=== PATIENT | male | born 1970 | race Caucasian/White ===

== ENCOUNTER 2016-11-15 00:30 | Emergency (ER) | payer OTHER ==
--- NOTE | 2016-11-15 02:28 | ED CLINICAL REPORT ---
Clinical Report - Physicians/Mid Levels [facility] [address] [place] [address] 11/15/2016 0:29 Patient: ILEANA FAYE Time Seen: 0030. Arrived- By ambulance. Historian- patient. HISTORY OF PRESENT ILLNESS Chief Complaint: RIGHT TESTICULAR PAIN. This started past several days and is still present and worsening. It was abrupt in onset and has been constant but is not gone now. No penile discharge or genital lesion. He has had testicular pain. Able to void. Sexual history is noncontributory. Similar symptoms previously: None. Recent medical care: Not recently seen/assessed. REVIEW OF SYSTEMS No fever or chills. All systems otherwise negative, except as recorded above. PAST HISTORY See nurses notes. SOCIAL HISTORY Smoker- current status unknown. Occasional alcohol use. No drug use. No recent travel. Is a local resident. FAMILY HISTORY (no family history of testicular cancer). ADDITIONAL NOTES The nursing notes have been reviewed. PHYSICAL EXAM Vital Signs: 11/15/2016 00:32 BP: 136/87. HR: 86. RR: 16. O2 saturation: 97%. Temp: 97.6 F. Pain level now: 6/10. Blood pressure normal. Oxygen saturation normal. Appearance: Alert. Oriented X3. No acute distress. ENT: Normal external inspection. Pharynx normal. CVS: Heart sounds normal. Respiratory: No respiratory distress. Breath sounds normal. Abdomen: Soft and nontender. Bowel sounds normal. No mass. : (no hernia noted on examination. Normal-appearing right and left testicles with enlarged right-sided spermatic cord no masses. No crepitus. No signs of foreign's gangrene. Circumcised. No rashes or lesions. No inguinal lymphadenopathy. No overlying skin changes. No penile discharge). Skin: Skin warm and dry. Normal skin color. No rash. Normal skin turgor. Extremities: Extremities exhibit normal ROM. No lower extremity edema. Neuro: Oriented X 3. No motor deficit. No sensory deficit. LABS, X-RAYS, AND EKG Scrotal Sonogram: Testes normal. Medium-sized right hydrocele. The exam was performed by a biochemistry technician. The study was independently viewed by me, interpreted by the radiologist and discussed with the radiologist. Laboratory Tests: UA-Culture if indicated: (RUPERT: 11/15/2016 02:00) ( MsgRcvd 11/15/2016 02:18) Final results Test Result Flag Units (Reference) URINE COLOR YELLOW URINE APPEARANCE CLEAR URINE GLUCOSE NEGATIVE (NEGATIVE) URINE BILIRUBIN NEGATIVE (NEGATIVE) URINE KETONE NEGATIVE (NEGATIVE) URINE SPECIFIC GRAVITY >= 1.030 (1.010-1.030) URINE PH 6.0 (5.0-8.0) URINE PROTEIN NEGATIVE (NEGATIVE) URINE UROBILINOGEN 1.0 EU/dL (0.2-1.0) URINE NITRITE NEGATIVE (NEGATIVE) URINE BLOOD NEGATIVE (NEGATIVE) URINE LEUK ESTERASE NEGATIVE (NEGATIVE) URINE RBC 0-1 rbc/hpf (0-1) URINE WBC 1-3 wbc/hpf (0-1) URINE EPITHELIAL CELLS 0-1 EPI/hpf (0-5) URINE BACTERIA NONE SEEN (NONE SEEN) URINE COMMENT CULT NOT INDICATED URINE CULTURES ARE SET-UP BASED ON THE FOLLOWING CRITERIA:POSITIVE NITRITEPOSITIVE LEUKOCYTE ESTERASEGREATER THAN 10 WHITE BLOOD CELLSMODERATE (2+) OR GREATER BACTERIA . PROGRESS AND PROCEDURES Course of Care: the patient is a pleasant 46-year-old male presenting for evaluation of right-sided testicular pain on examination, the patient does not have any signs of inguinal hernia. Differential diagnosis at this time includes torsion,varicocele, hydrocele as well as epididymitis. Patient is agreeable to the workup and plan. Urinalysis as well as ultrasound has been ordered. Ultrasound does not show any signs of testicular torsion. Patient has good bilateral flow to theThe patient does have a right-sided hydrocele which would explain the patient's discomfort and I'm normality found on examination. Urinalysis does not show any signs ofurinary tract infection. Did not feel that this is epididymitis. Had a discussion with the patient in regards to symptoms here in the emergency department included home care, follow-up, and return precautions. All questions have been answered. The patient expressed understanding of these instructions and was agreeable to them. Prior to patient's departure from the emergency room he is noted to be nontoxic and resting in bed and in no acute distress. Patient is a good outpatient candidate. Do not feel patient has a surgical emergency at this time. Do not feel further emergency department workup/evaluation is required at this time. Disposition: Discharged. Condition: good. CLINICAL IMPRESSION 11/15/2016 00:32 BP: 136/87. HR: 86. RR: 16. O2 saturation: 97%. Temp: 97.6 F. Pain level now: 6/10. Hypertensive. Oxygen saturation normal. Right acute hydrocele. No infected hydrocele. INSTRUCTIONS Warnings: GENERAL WARNINGS: Return or contact your physician immediately if your condition worsens or changes unexpectedly, if not improving as expected, or if other problems arise. Specifically return if pain, vomiting, bleeding, breathing difficulty or fever. Your Current Medications: CONTINUE TAKING THE FOLLOWING MEDICATIONS: None*. OTC Medications: Tylenol (available over the counter): take according to label instructions. Motrin (available over the counter): take according to label instructions. Follow-up: Return to the emergency department as needed. Follow up with your doctor in three days. Reason for referral: recheck today's concerns. Summary of care provided to patient via paper. Screening today revealed the patient's blood pressure to be in the normal range. The patient should follow up with a primary care provider for blood pressure management. Understanding of the discharge instructions verbalized by patient. Follow-up with: Idris Peacock MD, Urology, , [address] [facility] [place], [id number] Follow up in one week if not well. Reason for referral: recheck today's concerns. Summary of care provided to patient via paper. (Electronically signed by Gonzalo Kimble Dr. 11/17/2016 5:23)
--- NOTE | 2016-11-15 02:28 | ED CLINICAL REPORT ---
Clinical Report - Physicians/Mid Levels [facility] [address] [place] [address] 11/15/2016 0:29 Patient: ILEANA FAYE Time Seen: 0030. Arrived- By ambulance. Historian- patient. HISTORY OF PRESENT ILLNESS Chief Complaint: RIGHT TESTICULAR PAIN. This started past several days and is still present and worsening. It was abrupt in onset and has been constant but is not gone now. No penile discharge or genital lesion. He has had testicular pain. Able to void. Sexual history is noncontributory. Similar symptoms previously: None. Recent medical care: Not recently seen/assessed. REVIEW OF SYSTEMS No fever or chills. All systems otherwise negative, except as recorded above. PAST HISTORY See nurses notes. SOCIAL HISTORY Smoker- current status unknown. Occasional alcohol use. No drug use. No recent travel. Is a local resident. FAMILY HISTORY (no family history of testicular cancer). ADDITIONAL NOTES The nursing notes have been reviewed. PHYSICAL EXAM Vital Signs: 11/15/2016 00:32 BP: 136/87. HR: 86. RR: 16. O2 saturation: 97%. Temp: 97.6 F. Pain level now: 6/10. Blood pressure normal. Oxygen saturation normal. Appearance: Alert. Oriented X3. No acute distress. ENT: Normal external inspection. Pharynx normal. CVS: Heart sounds normal. Respiratory: No respiratory distress. Breath sounds normal. Abdomen: Soft and nontender. Bowel sounds normal. No mass. : (no hernia noted on examination. Normal-appearing right and left testicles with enlarged right-sided spermatic cord no masses. No crepitus. No signs of foreign's gangrene. Circumcised. No rashes or lesions. No inguinal lymphadenopathy. No overlying skin changes. No penile discharge). Skin: Skin warm and dry. Normal skin color. No rash. Normal skin turgor. Extremities: Extremities exhibit normal ROM. No lower extremity edema. Neuro: Oriented X 3. No motor deficit. No sensory deficit. LABS, X-RAYS, AND EKG Scrotal Sonogram: Testes normal. Medium-sized right hydrocele. The exam was performed by a senior pharmacy technician. The study was independently viewed by me, interpreted by the radiologist and discussed with the radiologist. Laboratory Tests: UA-Culture if indicated: (RUPERT: 11/15/2016 02:00) ( MsgRcvd 11/15/2016 02:18) Final results Test Result Flag Units (Reference) URINE COLOR YELLOW URINE APPEARANCE CLEAR URINE GLUCOSE NEGATIVE (NEGATIVE) URINE BILIRUBIN NEGATIVE (NEGATIVE) URINE KETONE NEGATIVE (NEGATIVE) URINE SPECIFIC GRAVITY >= 1.030 (1.010-1.030) URINE PH 6.0 (5.0-8.0) URINE PROTEIN NEGATIVE (NEGATIVE) URINE UROBILINOGEN 1.0 EU/dL (0.2-1.0) URINE NITRITE NEGATIVE (NEGATIVE) URINE BLOOD NEGATIVE (NEGATIVE) URINE LEUK ESTERASE NEGATIVE (NEGATIVE) URINE RBC 0-1 rbc/hpf (0-1) URINE WBC 1-3 wbc/hpf (0-1) URINE EPITHELIAL CELLS 0-1 EPI/hpf (0-5) URINE BACTERIA NONE SEEN (NONE SEEN) URINE COMMENT CULT NOT INDICATED URINE CULTURES ARE SET-UP BASED ON THE FOLLOWING CRITERIA:POSITIVE NITRITEPOSITIVE LEUKOCYTE ESTERASEGREATER THAN 10 WHITE BLOOD CELLSMODERATE (2+) OR GREATER BACTERIA . PROGRESS AND PROCEDURES Course of Care: the patient is a pleasant 46-year-old male presenting for evaluation of right-sided testicular pain on examination, the patient does not have any signs of inguinal hernia. Differential diagnosis at this time includes torsion,varicocele, hydrocele as well as epididymitis. Patient is agreeable to the workup and plan. Urinalysis as well as ultrasound has been ordered. Ultrasound does not show any signs of testicular torsion. Patient has good bilateral flow to theThe patient does have a right-sided hydrocele which would explain the patient's discomfort and I'm normality found on examination. Urinalysis does not show any signs ofurinary tract infection. Did not feel that this is epididymitis. Had a discussion with the patient in regards to symptoms here in the emergency department included home care, follow-up, and return precautions. All questions have been answered. The patient expressed understanding of these instructions and was agreeable to them. Prior to patient's departure from the emergency room he is noted to be nontoxic and resting in bed and in no acute distress. Patient is a good outpatient candidate. Do not feel patient has a surgical emergency at this time. Do not feel further emergency department workup/evaluation is required at this time. Disposition: Discharged. Condition: good. CLINICAL IMPRESSION 11/15/2016 00:32 BP: 136/87. HR: 86. RR: 16. O2 saturation: 97%. Temp: 97.6 F. Pain level now: 6/10. Hypertensive. Oxygen saturation normal. Right acute hydrocele. No infected hydrocele. INSTRUCTIONS Warnings: GENERAL WARNINGS: Return or contact your physician immediately if your condition worsens or changes unexpectedly, if not improving as expected, or if other problems arise. Specifically return if pain, vomiting, bleeding, breathing difficulty or fever. Your Current Medications: CONTINUE TAKING THE FOLLOWING MEDICATIONS: None*. OTC Medications: Tylenol (available over the counter): take according to label instructions. Motrin (available over the counter): take according to label instructions. Follow-up: Return to the emergency department as needed. Follow up with your doctor in three days. Reason for referral: recheck today's concerns. Summary of care provided to patient via paper. Screening today revealed the patient's blood pressure to be in the normal range. The patient should follow up with a primary care provider for blood pressure management. Understanding of the discharge instructions verbalized by patient. Follow-up with: Idris Peacock MD, Urology, , [address] [facility] [place], [address] Follow up in one week if not well. Reason for referral: recheck today's concerns. Summary of care provided to patient via paper. (Electronically signed by Gonzalo Kimble Dr. 11/17/2016 5:23)
--- NOTE | 2016-11-15 02:29 | ED NURSING NOTES ---
Clinical Report - Nurses [facility] [address] [place] [address] 11/15/2016 0:29 Patient: ILEANA FAYE TRIAGE Triage time 00:32. Acuity: LEVEL 3. Chief Complaint: TESTICULAR PAIN. PENNY COMA SCORE: [place] Coma Scale: 15- eyes open spontaneously (4); best verbal response- oriented x 4 (5); best motor response- obeys commands (6). --00:39 Hugo Chavez R.N. 00:32 11/15/16. BP: 136/87. HR: 86. RR: 16. O2 saturation: 97%. Temp: 97.6 F. Pain level now: 01/05. --00:39 Hugo Chavez R.N. Weight: 102 kg stated. Height/Length: 73 inches Per Patient. BMI: 29.7. --00:36 Hugo Chavez R.N. Medications None. --00:33 Hugo Chavez R.N. Allergies No Known Drug Allergy. --00:33 Hugo Chavez R.N. History Historian: patient. Arrived in police custody. ( right testicular pain and swelling started 3/7 ago). He has had moderate testicular pain (3 days), involving the right testicle. Treatment MANAGED CARE PROVIDER: None. SURGERY HX: No history of previous surgery. SOCIAL HX: Light tobacco smoker (cigarette)- less than 1/2 a pack per day. History of drug use: marijuana. --00:39 Hugo Chavez R.N. PROBLEMS: Abcess penis. --00:34 Hugo Chavez R.N. Hernia. --00:36 Hugo Chavez R.N. ADDITIONAL SURGERIES: no known surgeries. Interventions To treatment room. --00:39 Hugo Chavez R.N. PHYSICAL ASSESSMENT Ambulatory to room. GENERAL / NEURO / PSYCH: Alert. Oriented X 4. Appears in no acute distress. HEENT: Mucous membranes are pink. RESPIRATORY: Respirations not labored. CVS: Normal heart rate and rhythm. GI / : Abdomen soft and nontender. Right-sided scrotal swelling. Right testicular tenderness. SKIN: Skin is warm. --00:41 Hugo Chavez R.N. NURSING PROGRESS NOTES Two patient identifiers checked. Call light placed in reach. Side rails up x 1. Bed placed in lowest position. Patient ready for evaluation- chart flagged and ED physician notified. Patient waiting for evaluation. ( handcuffed to the stretcher on his right wrist by the police liaison). --00:40 Hugo Chavez R.N. 00:48 11/15/2016 Motrin PO Tablets 600 mg given. Allergies verified and confirmed 5 rights. --00:48 Hugo Chavez R.N. 01:39- US tech at bedside to perform US exam. --01:39 Reyna Alva R.N. Patient ID band checked for patient name and birthdate: patient confirmed urine collected with return of natalie-colored urine; sample sent to lab. Specimen labeled in the presence of the patient. --02:04 Reyna Alva R.N. DISPOSITION / DISCHARGE Departure time: 02:40. Condition at departure: improved. No learning barriers present. Discharge instructions provided and reviewed with the patient. Reviewed medication(s) side effects, precautions, dosing and course information. Prescription(s) given to the patient. Patient verbalized understanding. Written instructions provided in Spanish. The patient was discharged to police department facility and accompanied by a police escort. He left the Emergency Department ambulatory and via police department vehicle. Driving (police). --02:40 Hugo Chavez R.N. 02:30 11/15/16. BP: 128/84. HR: 68. RR: 14. O2 saturation: 97%. Temp: 97.9 F. Pain level now: 11/05. --02:40 Hugo Chavez R.N. Locked/Released at 11/15/2016 2:41 by Hugo Chavez R.N.
--- NOTE | 2016-11-15 02:29 | ED ORDER SUMMARY ---
..... Patient: ILEANA FAYE OrderSheet [facility] VisitID: [id number] [place] [address] 46y, M Registration Date/Time: 11/15/2016 ORDER SHEET Weight: 102.0 kg (stated) Allergies: No Known Drug Allergy GENERAL ORDERS: US Scrotum/Testicular Urgent (00:37 11/15/2016 Alessandra Holm) (Ack 0:39 Vobi ER Family Nurse) (1:54 Nimesh) UA-Culture if indicated Urgent (00:38 11/15/2016 Alessandra Holm) (Ack 0:39 Ashtyn ER Family Nurse) (2:04 Helen R.N.) MEDICATION ORDERS: Motrin PO 600 mg (NOW) (00:37 11/15/2016 Alessandra Holm) (Ack 0:42 Marilee R.N.) (0:48 Marilee R.N.) IV FLUIDS: ORDER SHEET NOTES: [Electronically signed by Hugo Chavez R.N. (02:41 11/15/2016)] [Electronically locked/signed by Hugo Chavez R.N. (02:41 11/15/2016)]
--- NOTE | 2016-11-15 02:29 | ED ORDER SUMMARY ---
..... Patient: ILEANA FAYE OrderSheet [facility] VisitID: [id number] [place] [address] 46y, M Registration Date/Time: 11/15/2016 ORDER SHEET Weight: 102.0 kg (stated) Allergies: No Known Drug Allergy GENERAL ORDERS: US Scrotum/Testicular Urgent (00:37 11/15/2016 Alessandra Holm) (Ack 0:39 [facility] Film Processing Utility Worker) (1:54 Nimesh) UA-Culture if indicated Urgent (00:38 11/15/2016 Alessandra Holm) (Ack 0:39 Ashtyn ER Film Processing Utility Worker) (2:04 Helen R.N.) MEDICATION ORDERS: Motrin PO 600 mg (NOW) (00:37 11/15/2016 Alessandra Holm) (Ack 0:42 Marilee R.N.) (0:48 Marilee R.N.) IV FLUIDS: ORDER SHEET NOTES: [Electronically signed by Hugo Chavez R.N. (02:41 11/15/2016)] [Electronically locked/signed by Hugo Chavez R.N. (02:41 11/15/2016)]
--- NOTE | 2016-11-15 02:29 | ED NURSING NOTES ---
Clinical Report - Nurses [facility] [address] [place] [address] 11/15/2016 0:29 Patient: ILEANA FAYE TRIAGE Triage time 00:32. Acuity: LEVEL 3. Chief Complaint: TESTICULAR PAIN. PENNY COMA SCORE: [place] Coma Scale: 15- eyes open spontaneously (4); best verbal response- oriented x 4 (5); best motor response- obeys commands (6). --00:39 Hugo Chavez R.N. 00:32 11/15/16. BP: 136/87. HR: 86. RR: 16. O2 saturation: 97%. Temp: 97.6 F. Pain level now: 01/05. --00:39 Hugo Chavez R.N. Weight: 102 kg stated. Height/Length: 73 inches Per Patient. BMI: 29.7. --00:36 Hugo Chavez R.N. Medications None. --00:33 Hugo Chavez R.N. Allergies No Known Drug Allergy. --00:33 Hugo Chavez R.N. History Historian: patient. Arrived in police custody. ( right testicular pain and swelling started 3/7 ago). He has had moderate testicular pain (3 days), involving the right testicle. Treatment WASTE RECYCLER: None. SURGERY HX: No history of previous surgery. SOCIAL HX: Light tobacco smoker (cigarette)- less than 1/2 a pack per day. History of drug use: marijuana. --00:39 Hugo Chavez R.N. PROBLEMS: Abcess penis. --00:34 Hugo Chavez R.N. Hernia. --00:36 Hugo Chavez R.N. ADDITIONAL SURGERIES: no known surgeries. Interventions To treatment room. --00:39 Hugo Chavez R.N. PHYSICAL ASSESSMENT Ambulatory to room. GENERAL / NEURO / PSYCH: Alert. Oriented X 4. Appears in no acute distress. HEENT: Mucous membranes are pink. RESPIRATORY: Respirations not labored. CVS: Normal heart rate and rhythm. GI / : Abdomen soft and nontender. Right-sided scrotal swelling. Right testicular tenderness. SKIN: Skin is warm. --00:41 Hugo Chavez R.N. NURSING PROGRESS NOTES Two patient identifiers checked. Call light placed in reach. Side rails up x 1. Bed placed in lowest position. Patient ready for evaluation- chart flagged and ED physician notified. Patient waiting for evaluation. ( handcuffed to the stretcher on his right wrist by the police artist). --00:40 Hugo Chavez R.N. 00:48 11/15/2016 Motrin PO Tablets 600 mg given. Allergies verified and confirmed 5 rights. --00:48 Hugo Chavez R.N. 01:39- US tech at bedside to perform US exam. --01:39 Reyna Alva R.N. Patient ID band checked for patient name and birthdate: patient confirmed urine collected with return of natalie-colored urine; sample sent to lab. Specimen labeled in the presence of the patient. --02:04 Reyna Alva R.N. DISPOSITION / DISCHARGE Departure time: 02:40. Condition at departure: improved. No learning barriers present. Discharge instructions provided and reviewed with the patient. Reviewed medication(s) side effects, precautions, dosing and course information. Prescription(s) given to the patient. Patient verbalized understanding. Written instructions provided in [place]. The patient was discharged to police department facility and accompanied by a police escort. He left the Emergency Department ambulatory and via police department vehicle. Driving (police). --02:40 Hugo Chavez R.N. 02:30 11/15/16. BP: 128/84. HR: 68. RR: 14. O2 saturation: 97%. Temp: 97.9 F. Pain level now: 11/05. --02:40 Hugo Chavez R.N. Locked/Released at 11/15/2016 2:41 by Hugo Chavez R.N.
--- NOTE | 2016-11-15 07:02 | DIAGNOSTIC IMAGING REPORT ---
PROCEDURE: US SCROTUM/TESTICLE INDICATION: SCROTAL SWELLING TECHNIQUE: [place]a scale and color Doppler sonographic images through the scrotum were obtained. COMPARISON: None. FINDINGS: RIGHT TESTICLE: Measures 6 x 3.8 x 3.7 cm with normal echo structure and vascularity. Epididymis not well visualized. Large right hydrocele. LEFT TESTICLE: Measures 6 x 4.2 x 3.3 cm with normal echo structure and vascularity. Epididymis not well visualized. IMPRESSION: 1. Large right hydrocele 2. Normal testicles
--- NOTE | 2016-11-17 05:23 | ED DISCHARGE INSTRUCTIONS ---
Patient: ILEANA FAYE General Instructions [facility] VisitID: [id number] [place] [address] 46y, M Registration Date/Time: 11/15/2016 11/15/2016 00:32 BP: 136/87. HR: 86. RR: 16. O2 saturation: 97%. Temp: 97.6 F. Pain level now: 610. Hypertensive. Oxygen saturation normal. Right acute hydrocele. No infected hydrocele. INSTRUCTIONS Warnings: GENERAL WARNINGS: Return or contact your physician immediately if your condition worsens or changes unexpectedly, if not improving as expected, or if other problems arise. Specifically return if pain, vomiting, bleeding, breathing difficulty or fever. Your Current Medications: CONTINUE TAKING THE FOLLOWING MEDICATIONS: None*. OTC Medications: Tylenol (available over the counter): take according to label instructions. Motrin (available over the counter): take according to label instructions. Follow-up: Return to the emergency department as needed. Follow up with your doctor in three days. Reason for referral: recheck today's concerns. Summary of care provided to patient via paper. Screening today revealed the patient's blood pressure to be in the normal range. The patient should follow up with a primary care provider for blood pressure management. Understanding of the discharge instructions verbalized by patient. Follow-up with: Idris Peacock MD, Urology, , [address] [facility], [id number] Follow up in one week if not well. Reason for referral: recheck today's concerns. Summary of care provided to patient via paper. ADDITIONAL INFORMATION Hydrocele [Type Not Specified] Inside the womb, the testicles first form in the abdomen of the male fetus. Just before , the testicles move down into the scrotum. As this happens, fluid from the abdomen may pass into the scrotum and become sealed off there in a small sac. This is called a non-communicating hydrocele . In some infants the passage between the abdomen and the scrotum remains open. In this case, the bulge may increase and decrease in size as the fluid passes back and forth from the abdomen to the scrotum. This is called a communicating hydrocele . The danger of this second kind of hydrocele is that it can lead to a hernia . A hernia looks like a painless bulge in the groin or scrotum. An hernia can cause gangrene and rupture of the intestine. This is a life-threatening emergency and requires immediate surgery. So, it must be watched for. Most hydroceles shrink and disappear by the age of one or two years and require no treatment. If the hydrocele does not go away by 2 years of age, it may need to be corrected with surgery. Home Care: A small hydrocele will not interfere in any way with normal activity. There are no special precautions that need to be taken. Follow Up with your doctor or as advised by our staff. with your doctor for routine exams to be sure the hydrocele is shrinking and that no hernia appears. Get Prompt Medical Attention if any of the following occur: -- A new bulge in the groin that appears just above the thigh crease or in the scrotum -- Changes in size of the hydrocele (getting smaller then larger then smaller; or gets larger and stays larger) -- Pain, redness or tenderness in the hydrocele You have been given the following additional information: Hydrocele, Type Not Specified (Electronically signed by Gonzalo Kimble Dr. 11/17/2016 5:23)
--- NOTE | 2016-11-17 05:23 | ED MAR SUMMARY ---
..... Medication Administration Record [facility] [address] [place] [address] Patient: ILEANA FAYE Visit ID: [id number] 46y, M Weight: 102.0 kg Height/Length: 73 in BMI: 29.7 ALLERGIES: No Known Drug Allergy Given 00:48 11/15/2016 Hugo Chavez R.N. Medication Administered: MOTRIN [PO], Dose: 600 mg Tablets PO. Medication Ordered: Motrin PO 600 mg (NOW).
--- NOTE | 2016-11-17 05:23 | ED MED RECONCILIATION SUMMARY ---
Patient: ILEANA FAYE Medication Reconciliation Report [facility] VisitID: [id number] [address] [place] [address] 46y, M Registration Date/Time: 11/15/2016 Weight: 102.0 kg Height/Length: 73 in. BMI: 29.7 ALLERGIES: No Known Drug Allergy The patient's Home Medications are listed below: NONE. The source(s) of the original Home Medication information: Not obtained. The following Medications were given to the patient in the Emergency Department: Motrin [PO] PO 600 mg, administered: 11/15/2016 12:48:00 AM The following Medications were prescribed to the patient: Tylenol (available over the counter): take according to label instructions. -- Gonzalo Kimble Dr. Motshantal (available over the counter): take according to label instructions. -- Gonzalo Kimble Dr.
--- NOTE | 2016-11-17 05:23 | ED MAR SUMMARY ---
..... Medication Administration Record [facility] [address] [place] [address] Patient: ILEANA FAYE Visit ID: [id number] 46y, M Weight: 102.0 kg Height/Length: 73 in BMI: 29.7 ALLERGIES: No Known Drug Allergy Given 00:48 11/15/2016 Hugo Chavez R.N. Medication Administered: MOTRIN [PO], Dose: 600 mg Tablets PO. Medication Ordered: Motrin PO 600 mg (NOW).
--- NOTE | 2016-11-17 05:23 | ED DISCHARGE INSTRUCTIONS ---
Patient: ILEANA FAYE General Instructions [facility] VisitID: [id number] [place] [address] 46y, M Registration Date/Time: 11/15/2016 11/15/2016 00:32 BP: 136/87. HR: 86. RR: 16. O2 saturation: 97%. Temp: 97.6 F. Pain level now: 610. Hypertensive. Oxygen saturation normal. Right acute hydrocele. No infected hydrocele. INSTRUCTIONS Warnings: GENERAL WARNINGS: Return or contact your physician immediately if your condition worsens or changes unexpectedly, if not improving as expected, or if other problems arise. Specifically return if pain, vomiting, bleeding, breathing difficulty or fever. Your Current Medications: CONTINUE TAKING THE FOLLOWING MEDICATIONS: None*. OTC Medications: Tylenol (available over the counter): take according to label instructions. Motrin (available over the counter): take according to label instructions. Follow-up: Return to the emergency department as needed. Follow up with your doctor in three days. Reason for referral: recheck today's concerns. Summary of care provided to patient via paper. Screening today revealed the patient's blood pressure to be in the normal range. The patient should follow up with a primary care provider for blood pressure management. Understanding of the discharge instructions verbalized by patient. Follow-up with: Idris Peacock MD, Urology, , [address] [place], [address] Follow up in one week if not well. Reason for referral: recheck today's concerns. Summary of care provided to patient via paper. ADDITIONAL INFORMATION Hydrocele [Type Not Specified] Inside the womb, the testicles first form in the abdomen of the male fetus. Just before , the testicles move down into the scrotum. As this happens, fluid from the abdomen may pass into the scrotum and become sealed off there in a small sac. This is called a non-communicating hydrocele . In some infants the passage between the abdomen and the scrotum remains open. In this case, the bulge may increase and decrease in size as the fluid passes back and forth from the abdomen to the scrotum. This is called a communicating hydrocele . The danger of this second kind of hydrocele is that it can lead to a hernia . A hernia looks like a painless bulge in the groin or scrotum. An hernia can cause gangrene and rupture of the intestine. This is a life-threatening emergency and requires immediate surgery. So, it must be watched for. Most hydroceles shrink and disappear by the age of one or two years and require no treatment. If the hydrocele does not go away by 2 years of age, it may need to be corrected with surgery. Home Care: A small hydrocele will not interfere in any way with normal activity. There are no special precautions that need to be taken. Follow Up with your doctor or as advised by our staff. with your doctor for routine exams to be sure the hydrocele is shrinking and that no hernia appears. Get Prompt Medical Attention if any of the following occur: -- A new bulge in the groin that appears just above the thigh crease or in the scrotum -- Changes in size of the hydrocele (getting smaller then larger then smaller; or gets larger and stays larger) -- Pain, redness or tenderness in the hydrocele You have been given the following additional information: Hydrocele, Type Not Specified (Electronically signed by Gonzalo Kimble Dr. 11/17/2016 5:23)
--- NOTE | 2016-11-17 05:23 | ED MED RECONCILIATION SUMMARY ---
Patient: ILEANA FAYE Medication Reconciliation Report [facility] VisitID: [id number] [address] [place] [address] 46y, M Registration Date/Time: 11/15/2016 Weight: 102.0 kg Height/Length: 73 in. BMI: 29.7 ALLERGIES: No Known Drug Allergy The patient's Home Medications are listed below: NONE. The source(s) of the original Home Medication information: Not obtained. The following Medications were given to the patient in the Emergency Department: Motrin [PO] PO 600 mg, administered: 11/15/2016 12:48:00 AM The following Medications were prescribed to the patient: Tylenol (available over the counter): take according to label instructions. -- Gonzalo Kimble Dr. Motshantal (available over the counter): take according to label instructions. -- Gonzalo Kimble Dr.
== END 2016-11-15 02:41 ==
LOC: ED SRH 00:30
DX: N43.3 Hydrocele, unspecified (principal); F17.210 Nicotine dependence, cigarettes, uncomplicated
CPT/HCPCS: 90004

== ENCOUNTER 2016-11-21 12:40 | Emergency (ER) | payer OTHER ==
--- NOTE | 2016-11-21 13:43 | DIAGNOSTIC IMAGING REPORT ---
PROCEDURE: XR SHOULDER 2 OR MORE VW-RIGHT INDICATION: TRAUMA/INJURY TECHNIQUE: Three views. COMPARISON: None. FINDINGS: Osseous structures and joint spaces are normal. IMPRESSION: 1. Normal right shoulder.
--- NOTE | 2016-11-21 13:49 | ED ORDER SUMMARY ---
..... Patient: ILEANA FAYE OrderSheet [facility] VisitID: [id number] [address] [place] [address] 46y, M Registration Date/Time: 11/21/2016 ORDER SHEET Weight: 99.7 kg (stated) Allergies: No Known Drug Allergy GENERAL ORDERS: Shoulder 2V or more Right Urgent (12:51 11/21/2016 Riley R.N. per protocol) (Ack 12:53 LNations ER Tech1) (13:05 JBoardley R.N.) - (please give pt ice pack) (13:50 11/21/2016 LYNNETTEivenbassam A.R.N.P.) (13:52 LNations ER Tech1) MEDICATION ORDERS: IV FLUIDS: ORDER SHEET NOTES: [Electronically signed by Keena BenzRSonaliN.PSonali (17:32 11/21/2016)] [Electronically signed by Roger Weiss R.N. (09:05 11/26/2016)] [Electronically locked/signed by Roger Weiss R.N. (09:05 11/26/2016)]
--- NOTE | 2016-11-21 13:49 | ED NURSING NOTES ---
Clinical Report - Nurses [facility] [address] [place] [address] 11/21/2016 12:42 Patient: ILEANA FAYE TRIAGE Triage time 12:45. Acuity: LEVEL 3. Chief Complaint: FALL. 12:47 11/21/16. 12:47 11/21/16. Alert. No acute distress. (in pain). ( Pt fell onto right shoulder while handcuffed striking the frame of a door. Pt is an inmate. This occurred at 1135.). SEPSIS SCREEN: Sepsis Screen. Negative (no infection suspected/documented). JAKE COMA SCORE: Jake Coma Scale: 15- eyes open spontaneously (4); best verbal response- oriented x 4 (5); best motor response- obeys commands (6). --12:50 Roger Weiss R.N. 12:45 11/21/16. BP: 127/70. HR: 70. RR: 14. O2 saturation: 100% on room air. Temp: 98.1 F (oral). Pain level now: 03/07. --12:50 Roger Weiss R.N. ( Pt stuck right ear when he fell against the door frame). --12:52 Roger Weiss R.N. Weight: 99.7 kg stated. Height/Length: 73 inches Per Patient. BMI: 29. --12:47 Roger Weiss R.N. Medications None. --12:49 Roger Weiss R.N. Allergies No Known Drug Allergy. --12:49 Roger Weiss R.N. History Arrived by private vehicle. Historian: patient. Accompanied by (police). Primary physician (NONE). 12:47 11/21/16. This occurred today. He has had neck pain. No loss of consciousness. No headache. Treatment AUTOMOTIVE TIRE TESTER: None. (sling applied by EMT, by [employer]). Trauma activation: Pre-hospital notification of patient arrival was not received. PAST MEDICAL HX: Tetanus status: up-to-date. Immunizations: up-to-date. SOCIAL HX: Current some days smoker. Alcohol use. Patient is a recovering alcoholic. (last drink was 8 years ago). No drug use. No infectious disease exposure. ABUSE ASSESSMENT: No report of abuse. FALL RISK ASSESSMENT: Fall risk assessment completed. No fall risk identified. NUTRITIONAL RISK ASSESSMENT: The nutritional risk assessment revealed no deficiencies. FUNCTIONAL ASSESSMENT: Functional assessment: no impairments noted. LEARNING NEEDS ASSESSMENT: The learning needs assessment revealed no barriers. SKIN INTEGRITY ASSESSMENT: Skin integrity risk assessment completed. No skin integrity risk identified. --12:50 Roger Weiss R.N. PROBLEMS: Hydrocele. Hernia. Abcess penis. --12:49 Roger Weiss R.N. ADDITIONAL SURGERIES: no known surgeries. Assessment 12:47 11/21/16. --12:50 Roger Weiss R.N. Interventions 12:47 11/21/16. 12:47 11/21/16. ID and allergy band on patient. To treatment room. --12:50 Roger Weiss R.N. PHYSICAL ASSESSMENT 12:49 11/21/16. Ambulatory to room. GENERAL / NEURO / PSYCH: Alert. Oriented X 4. Appears in no acute distress. HEENT: Neck: tenderness. RESPIRATORY: Respirations not labored. CVS: Capillary refill less than 2 seconds. EXTREMITIES: Right shoulder: tenderness. SKIN: Skin is warm and dry. --12:49 Roger Weiss R.N. NURSING PROGRESS NOTES 12:50 11/21/16. The plan of care for this patient has been created. Reassurance given. Call light placed in reach. Side rails up x 2. --12:50 Roger Weiss R.N. 12:50 11/21/16. Patient ready for evaluation- chart flagged and notification provided. --12:50 Roger Weiss R.N. DISPOSITION / DISCHARGE 14:02 11/21/16. Condition at departure: improved. The goals identified in the patient's plan of care were met. ( Pt DC'd with police). No learning barriers present. Discharge instructions provided and reviewed with the patient. Reviewed warnings. Reviewed medication(s). Treatments reviewed. Patient verbalized understanding. Written instructions provided in Armenian. The patient was discharged by the nurse practitioner. He was discharged home and accompanied by a police escort. He left the Emergency Department ambulatory and via private vehicle. Driving (police). FALL RISK ASSESSMENT: Fall risk assessment completed. No fall risk identified. --14:02 Roger Weiss R.N. 14:11/21/16. BP: 124/72. HR: 81. RR: 16. O2 saturation: 100% on room air. Temp: 97.9 F (oral). Pain level now: 10/05. --14:02 Roger Weiss R.N. 14:02 11/21/16. Departure time: 14:02. --14:02 Roger Weiss R.N. 14:02 11/21/16. ( Ice pack given). --14:02 Roger Weiss R.N. Locked/Released at 11/26/2016 9:05 by Roger Weiss R.N.
--- NOTE | 2016-11-21 13:49 | ED ORDER SUMMARY ---
..... Patient: ILEANA FAYE OrderSheet [facility] VisitID: [id number] [address] [place] [address] 46y, M Registration Date/Time: 11/21/2016 ORDER SHEET Weight: 99.7 kg (stated) Allergies: No Known Drug Allergy GENERAL ORDERS: Shoulder 2V or more Right Urgent (12:51 11/21/2016 Riley R.N. per protocol) (Ack 12:53 LNations ER Tech1) (13:05 JBoardley R.N.) - (please give pt ice pack) (13:50 11/21/2016 LYNNETTEivenbassam A.R.N.P.) (13:52 LNations ER Tech1) MEDICATION ORDERS: IV FLUIDS: ORDER SHEET NOTES: [Electronically signed by eKena BenzRSonaliN.PSonali (17:32 11/21/2016)] [Electronically signed by Roger Weiss R.N. (09:05 11/26/2016)] [Electronically locked/signed by Roger Weiss R.N. (09:05 11/26/2016)]
--- NOTE | 2016-11-21 13:49 | ED CLINICAL REPORT ---
Clinical Report - Physicians/Mid Levels [facility] [address] [place] [address] 11/21/2016 12:42 Patient: ILEANA FAYE Time Seen: 1310; initial patient contact, initial documentation, patient care assumed. Arrived- Police present. Historian- patient and police. HISTORY OF PRESENT ILLNESS Location of injuries- neck and right shoulder (R ear). Chief Complaint: near fall. The injury occurred just prior to arrival. (half-way). ( was in handcuffs, walking thru half-way, tripped and fell full body weight into metal door frame, striking R collar bone, couldn't brace himself because of the hand cuffs). The patient complains of moderate pain. No blow to the head, loss of consciousness or seizure. The patient complains of neck pain. Not dazed. REVIEW OF SYSTEMS No numbness, chest pain, difficulty breathing, weakness or abdominal pain. No laceration. He has no pain on weight bearing. All systems otherwise negative, except as recorded above. PAST HISTORY See nurses notes. PROBLEMS: Hydrocele. Hernia. Abcess penis. --12:49 Roger Weiss RZainab. ADDITIONAL SURGERIES: no known surgeries. SOCIAL HISTORY Light tobacco smoker. Alcohol use. Patient is a recovering alcoholic. No drug use. No recent travel. Is a local resident. Resides in half-way. FAMILY HISTORY No significant family medical history. ADDITIONAL NOTES The nursing notes have been reviewed with agreement regarding the chief complaint, HPI, ROS, PMH and patient medications and allergies. PHYSICAL EXAM Vital Signs: 11/21/2016 12:45 BP: 127/70. HR: 70. RR: 14. O2 saturation: 100%. Temp: 98.1 F. Pain level now: 8/10. Have been reviewed as normal and appear to be correct. Appearance: Alert. Oriented X3. No acute distress. Head: Head non-tender. No swelling of head. Eyes: Pupils equal, round and reactive to light. EOM intact. ENT: No dental injury. Pharynx normal. Neck: Painless ROM. Non-tender. CVS: Heart sounds normal. Pulses normal. Respiratory: Breath sounds normal. Chest nontender. Abdomen: No visible injury. Soft and nontender. Back: No tenderness. ROM normal. Skin: Skin intact. Skin warm and dry. Normal skin color. Normal skin turgor. Extremities: Abnormal inspection. Extremities not atraumatic. Right clavicle area: moderate tenderness and small ecchymosis located in the area of the mid-clavicle. Limited ROM in the right arm secondary to pain (diminished abduction, adduction, flexion, extension and external and internal rotation). Neurovascular intact distally. No erythema, swelling, laceration, abrasion or puncture wound. No foreign body or deformity. Pelvis stable. No lower extremity edema. Neuro: Oriented X 3. No motor deficit. No sensory deficit. LABS, X-RAYS, AND EKG X-Rays: Right shoulder negative. Rt Shoulder X-ray: (IMPRESSION: 1. Normal right shoulder. Electronically Final signed by:Jalen Bhardwaj MD 11/21/2016 1:43:54 PM). The X-rays were interpreted by the radiologist and contemporaneously by me. PROGRESS AND PROCEDURES Course of Care: police guard here with pt. Patient counseled in person regarding the patient's stable condition, test results and diagnosis. 13:46. Differential Diagnosis: Other possible considerations: fall, fx, dislocation, contusion, lac, abrasion, sprains. Above considerations are based on history, physical exam, reassessment and X-Ray data. Differential diagnosis was discussed with patient. Disposition: Discharged home in good and improved condition (13:49). Condition: good and stable. CLINICAL IMPRESSION Single contusion to the right shoulder.No hematoma or skin abrasion. Fall on same level by tripping. INSTRUCTIONS Apply ice for 20 minutes four times a day for two days until better. Don't apply ice directly to skin. (patient is medically cleared to go with police back to half-way). Follow-up: Follow up with your doctor in about one week as needed. Call for an appointment. Summary of care provided to patient. Understanding of the discharge instructions verbalized by patient. (Electronically signed by Keena Benz A.R.NTeddy 11/21/2016 17:32)
--- NOTE | 2016-11-21 13:49 | ED CLINICAL REPORT ---
Clinical Report - Physicians/Mid Levels [facility] [address] [place] [address] 11/21/2016 12:42 Patient: ILEANA FAYE Time Seen: 1310; initial patient contact, initial documentation, patient care assumed. Arrived- Police present. Historian- patient and police. HISTORY OF PRESENT ILLNESS Location of injuries- neck and right shoulder (R ear). Chief Complaint: near fall. The injury occurred just prior to arrival. (senior care). ( was in handcuffs, walking thru senior care, tripped and fell full body weight into metal door frame, striking R collar bone, couldn't brace himself because of the hand cuffs). The patient complains of moderate pain. No blow to the head, loss of consciousness or seizure. The patient complains of neck pain. Not dazed. REVIEW OF SYSTEMS No numbness, chest pain, difficulty breathing, weakness or abdominal pain. No laceration. He has no pain on weight bearing. All systems otherwise negative, except as recorded above. PAST HISTORY See nurses notes. PROBLEMS: Hydrocele. Hernia. Abcess penis. --12:49 Roger Weiss RZainab. ADDITIONAL SURGERIES: no known surgeries. SOCIAL HISTORY Light tobacco smoker. Alcohol use. Patient is a recovering alcoholic. No drug use. No recent travel. Is a local resident. Resides in senior care. FAMILY HISTORY No significant family medical history. ADDITIONAL NOTES The nursing notes have been reviewed with agreement regarding the chief complaint, HPI, ROS, PMH and patient medications and allergies. PHYSICAL EXAM Vital Signs: 11/21/2016 12:45 BP: 127/70. HR: 70. RR: 14. O2 saturation: 100%. Temp: 98.1 F. Pain level now: 8/10. Have been reviewed as normal and appear to be correct. Appearance: Alert. Oriented X3. No acute distress. Head: Head non-tender. No swelling of head. Eyes: Pupils equal, round and reactive to light. EOM intact. ENT: No dental injury. Pharynx normal. Neck: Painless ROM. Non-tender. CVS: Heart sounds normal. Pulses normal. Respiratory: Breath sounds normal. Chest nontender. Abdomen: No visible injury. Soft and nontender. Back: No tenderness. ROM normal. Skin: Skin intact. Skin warm and dry. Normal skin color. Normal skin turgor. Extremities: Abnormal inspection. Extremities not atraumatic. Right clavicle area: moderate tenderness and small ecchymosis located in the area of the mid-clavicle. Limited ROM in the right arm secondary to pain (diminished abduction, adduction, flexion, extension and external and internal rotation). Neurovascular intact distally. No erythema, swelling, laceration, abrasion or puncture wound. No foreign body or deformity. Pelvis stable. No lower extremity edema. Neuro: Oriented X 3. No motor deficit. No sensory deficit. LABS, X-RAYS, AND EKG X-Rays: Right shoulder negative. Rt Shoulder X-ray: (IMPRESSION: 1. Normal right shoulder. Electronically Final signed by:Jalen Bhardwaj MD 11/21/2016 1:43:54 PM). The X-rays were interpreted by the radiologist and contemporaneously by me. PROGRESS AND PROCEDURES Course of Care: chief of police here with pt. Patient counseled in person regarding the patient's stable condition, test results and diagnosis. 13:46. Differential Diagnosis: Other possible considerations: fall, fx, dislocation, contusion, lac, abrasion, sprains. Above considerations are based on history, physical exam, reassessment and X-Ray data. Differential diagnosis was discussed with patient. Disposition: Discharged home in good and improved condition (13:49). Condition: good and stable. CLINICAL IMPRESSION Single contusion to the right shoulder.No hematoma or skin abrasion. Fall on same level by tripping. INSTRUCTIONS Apply ice for 20 minutes four times a day for two days until better. Don't apply ice directly to skin. (patient is medically cleared to go with police back to senior care). Follow-up: Follow up with your doctor in about one week as needed. Call for an appointment. Summary of care provided to patient. Understanding of the discharge instructions verbalized by patient. (Electronically signed by Keena Benz A.R.NTeddy 11/21/2016 17:32)
--- NOTE | 2016-11-21 13:49 | ED NURSING NOTES ---
Clinical Report - Nurses [facility] [address] [place] [address] 11/21/2016 12:42 Patient: ILEANA FAYE TRIAGE Triage time 12:45. Acuity: LEVEL 3. Chief Complaint: FALL. 12:47 11/21/16. 12:47 11/21/16. Alert. No acute distress. (in pain). ( Pt fell onto right shoulder while handcuffed striking the frame of a door. Pt is an inmate. This occurred at 1135.). SEPSIS SCREEN: Sepsis Screen. Negative (no infection suspected/documented). JAKE COMA SCORE: Jake Coma Scale: 15- eyes open spontaneously (4); best verbal response- oriented x 4 (5); best motor response- obeys commands (6). --12:50 Roger Weiss R.N. 12:45 11/21/16. BP: 127/70. HR: 70. RR: 14. O2 saturation: 100% on room air. Temp: 98.1 F (oral). Pain level now: 03/07. --12:50 Roger Weiss R.N. ( Pt stuck right ear when he fell against the door frame). --12:52 Roger Weiss R.N. Weight: 99.7 kg stated. Height/Length: 73 inches Per Patient. BMI: 29. --12:47 Roger Weiss R.N. Medications None. --12:49 Roger Weiss R.N. Allergies No Known Drug Allergy. --12:49 Roger Weiss R.N. History Arrived by private vehicle. Historian: patient. Accompanied by (police). Primary physician (NONE). 12:47 11/21/16. This occurred today. He has had neck pain. No loss of consciousness. No headache. Treatment DIRECTOR ONLINE MARKETING: None. (sling applied by EMT, by [employer]). Trauma activation: Pre-hospital notification of patient arrival was not received. PAST MEDICAL HX: Tetanus status: up-to-date. Immunizations: up-to-date. SOCIAL HX: Current some days smoker. Alcohol use. Patient is a recovering alcoholic. (last drink was 8 years ago). No drug use. No infectious disease exposure. ABUSE ASSESSMENT: No report of abuse. FALL RISK ASSESSMENT: Fall risk assessment completed. No fall risk identified. NUTRITIONAL RISK ASSESSMENT: The nutritional risk assessment revealed no deficiencies. FUNCTIONAL ASSESSMENT: Functional assessment: no impairments noted. LEARNING NEEDS ASSESSMENT: The learning needs assessment revealed no barriers. SKIN INTEGRITY ASSESSMENT: Skin integrity risk assessment completed. No skin integrity risk identified. --12:50 Roger Weiss R.N. PROBLEMS: Hydrocele. Hernia. Abcess penis. --12:49 Roger Weiss R.N. ADDITIONAL SURGERIES: no known surgeries. Assessment 12:47 11/21/16. --12:50 Roger Weiss R.N. Interventions 12:47 11/21/16. 12:47 11/21/16. ID and allergy band on patient. To treatment room. --12:50 Roger Weiss R.N. PHYSICAL ASSESSMENT 12:49 11/21/16. Ambulatory to room. GENERAL / NEURO / PSYCH: Alert. Oriented X 4. Appears in no acute distress. HEENT: Neck: tenderness. RESPIRATORY: Respirations not labored. CVS: Capillary refill less than 2 seconds. EXTREMITIES: Right shoulder: tenderness. SKIN: Skin is warm and dry. --12:49 Roger Weiss R.N. NURSING PROGRESS NOTES 12:50 11/21/16. The plan of care for this patient has been created. Reassurance given. Call light placed in reach. Side rails up x 2. --12:50 Roger Weiss R.N. 12:50 11/21/16. Patient ready for evaluation- chart flagged and notification provided. --12:50 Roger Weiss R.N. DISPOSITION / DISCHARGE 14:02 11/21/16. Condition at departure: improved. The goals identified in the patient's plan of care were met. ( Pt DC'd with police). No learning barriers present. Discharge instructions provided and reviewed with the patient. Reviewed warnings. Reviewed medication(s). Treatments reviewed. Patient verbalized understanding. Written instructions provided in [place]. The patient was discharged by the nurse practitioner. He was discharged home and accompanied by a police escort. He left the Emergency Department ambulatory and via private vehicle. Driving (police). FALL RISK ASSESSMENT: Fall risk assessment completed. No fall risk identified. --14:02 Roger Weiss R.N. 14:11/21/16. BP: 124/72. HR: 81. RR: 16. O2 saturation: 100% on room air. Temp: 97.9 F (oral). Pain level now: 10/05. --14:02 Roger Weiss R.N. 14:02 11/21/16. Departure time: 14:02. --14:02 Roger Weiss R.N. 14:02 11/21/16. ( Ice pack given). --14:02 Roger Weiss R.N. Locked/Released at 11/26/2016 9:05 by Roger Weiss R.N.
--- NOTE | 2016-11-26 15:10 | ED DISCHARGE INSTRUCTIONS ---
Patient: ILEANA FAYE General Instructions [facility] VisitID: [id number] [place] [address] 46y, M Registration Date/Time: 11/21/2016 Single contusion to the right shoulder.No hematoma or skin abrasion. Fall on same level by tripping. INSTRUCTIONS Apply ice for 20 minutes four times a day for two days until better. Don't apply ice directly to skin. (patient is medically cleared to go with police back to care home). Follow-up: Follow up with your doctor in about one week as needed. Call for an appointment. Summary of care provided to patient. Understanding of the discharge instructions verbalized by patient. ADDITIONAL INFORMATION Mechanical Fall You have had a fall today. It appears that the cause is mechanical. That means that you slipped, tripped or lost your balance. If your fall had been due to fainting or a seizure, further tests would be required. Home Care: Rest today and resume your normal activities when you are feeling back to normal. If you were injured during the fall, follow the advice from your doctor regarding care of your injury. You may use acetaminophen (Tylenol) or ibuprofen (Motrin, Advil) to control pain, unless another pain medicine was prescribed. [NOTE: If you have chronic liver or kidney disease or ever had a stomach ulcer or GI bleeding, talk with your doctor before using these medicines.] Fall Prevention: Was there anything that caused your fall that can be fixed, removed, or replaced? Make your home safe by keeping walkways clear of objects you may trip over. Use non-slip pads under rugs. Do not walk in poorly lit areas. Do not stand on chairs or wobbly ladders. Use caution when reaching overhead or looking upward. This position can cause a loss of balance. Be sure your shoes fit properly, have non-slip bottoms and are in good condition. Be cautious when going up and down curbs, and walking on uneven sidewalks. If your balance is poor, consider using a cane or walker. Stay as active as you can. Balance, flexibility, strength, and endurance all come from exercise. They all play a role in preventing falls. Follow Up with your doctor or as advised by our staff. Get Prompt Medical Attention if any of the following occur: Repeated mechanical falls, or unexplained falls Dizziness, fainting or seizure Severe headache Chest pain or shortness of breath Palpitations (very rapid or very slow or irregular heartbeat) Blood in vomit, stools (black or red color) Weakness of an arm or leg or one side of the face Difficulty with speech or vision Contusion,Soft Tissue You have a CONTUSION, which is a bruise with swelling and some bleeding under the skin. There are no broken bones. This injury takes a few days to a few weeks to heal. Home Care: 1) Keep the injured part elevated to reduce pain and swelling. This is especially important during the first 48 hours. 2) Make an ice pack (ice cubes in a plastic bag, wrapped in a towel) and apply for 20 minutes every 1-2 hours the first day. Continue this 3-4 times a day until the pain and swelling goes away. 3) You may use acetaminophen (Tylenol) or ibuprofen (Motrin, Advil) to control pain, unless another pain medicine was prescribed. [ NOTE : If you have chronic liver or kidney disease or ever had a stomach ulcer or GI bleeding, talk with your doctor before using these medicines.] Follow Up with your doctor or this facility if you are not improving within the next THREE days. [NOTE: If X-rays were taken, they will be reviewed by a radiologist. You will be notified of any new findings that may affect your care.] Get Prompt Medical Attention if any of the following occur: -- Pain or swelling increases -- Injured arm or leg becomes cold, blue, numb or tingly -- Redness, warmth or drainage from the skin You have been given the following additional information: Fall, Mechanical Contusion, Soft Tissue (Electronically signed by Keena Benz A.R.N.P. 11/21/2016 17:32)
--- NOTE | 2016-11-26 15:11 | ED MED RECONCILIATION SUMMARY ---
Patient: ILEANA FAYE Medication Reconciliation Report [facility] VisitID: [id number] [address] [place] [address] 46y, M Registration Date/Time: 11/21/2016 Weight: 99.7 kg Height/Length: 73 in. BMI: 29.0 ALLERGIES: No Known Drug Allergy The patient's Home Medications are listed below: NONE. The source(s) of the original Home Medication information: Not obtained. The following Medications were given to the patient in the Emergency Department: None. The following Medications were prescribed to the patient: None.
--- NOTE | 2016-11-26 15:11 | ED MED RECONCILIATION SUMMARY ---
Patient: ILEANA FAYE Medication Reconciliation Report [facility] VisitID: [id number] [address] [place] [address] 46y, M Registration Date/Time: 11/21/2016 Weight: 99.7 kg Height/Length: 73 in. BMI: 29.0 ALLERGIES: No Known Drug Allergy The patient's Home Medications are listed below: NONE. The source(s) of the original Home Medication information: Not obtained. The following Medications were given to the patient in the Emergency Department: None. The following Medications were prescribed to the patient: None.
--- NOTE | 2016-11-26 15:11 | ED MAR SUMMARY ---
..... Medication Administration Record [facility] [address] [place], [place] [id number] Patient: ILEANA FAYE Visit ID: [id number] 46y, M Weight: 99.7 kg Height/Length: 73 in BMI: 29 ALLERGIES: No Known Drug Allergy
--- NOTE | 2016-11-26 15:11 | ED MAR SUMMARY ---
..... Medication Administration Record [facility] [address] [place] [id number] Patient: ILEANA FAYE Visit ID: [id number] 46y, M Weight: 99.7 kg Height/Length: 73 in BMI: 29 ALLERGIES: No Known Drug Allergy
== END 2016-11-21 14:00 | disposition home or self-care (01) ==
LOC: ED SRH 12:40
DX: S40.011A Contusion of right shoulder, initial encounter (principal); W18.39XA Other fall on same level, initial encounter; W18.09XA Striking against other object with subsequent fall, initial encounter; Y92.149 Unspecified place in prison as the place of occurrence of the external cause; Y93.89 Activity, other specified; Y99.8 Other external cause status; F17.210 Nicotine dependence, cigarettes, uncomplicated